=== PATIENT | male | born 1960 | race Caucasian/White ===

== ENCOUNTER 2016-07-30 18:25 | Emergency (ER) | payer SELFPAY ==
[~2016-07-30] VITALS: Ht 182.9 cm; Wt 95.5 kg
[~2016-07-30 18:25] MED LIST: ASPIRIN 32325 MG/TAB PO; LIPITOR 80MG80 MG PO; LOPRESSOR 225 MG/TAB PO; NITROQUICK0.4 MG SL; NO HOME MEDICATIONS; PLAVIX 75MG TAB75 MG PO; ZESTRIL2.5 MG PO; [UNRECOGNIZED DRUG - OTHER]; [UNRECOGNIZED DRUG - OTHER]; [UNRECOGNIZED DRUG - OTHER]; [UNRECOGNIZED DRUG - OTHER]; [UNRECOGNIZED DRUG - OTHER]
[2016-07-30 18:29] VITALS: TEMP 97.7
[2016-07-30 18:46] LABS: ADD PATHOLOGY DIFF REVIEW NO
[2016-07-30 18:54] LABS: HEMATOCRIT 44.7 % (42.0-52.0); HEMOGLOBIN 15.3 g/dl (13.5-18.0); MEAN CELL VOLUME 88 fl (80.0-100.0); MEAN CORPUSCULAR HEMOGLOBIN 30 pg (27.0-31.0); MEAN CORPUSCULAR HGB CONC 34 g/dl (33.0-37.0); MEAN PLATELET VOLUME 9.4 fl (7.4-10.4); PLATELET COUNT 225 K/mm3 (130-400); RED BLOOD COUNT 5.09 M/mm3 (4.20-5.60)
[2016-07-30 19:06] LABS: ADJUSTED CALCIUM 9.1 mg/dL (8.4-10.2); ALBUMIN 4.3 gm/dL (3.5-5.0); BILIRUBIN,TOTAL 0.8 mg/dL (0.0-1.0); CALCIUM 9.3 mg/dL (8.4-10.2); CREATININE, serum 1.15 mg/dL (0.66-1.25); POTASSIUM 4.4 mmol/L (3.4-5.0); TOTAL PROTEIN 7.7 gm/dL (6.4-8.2)
[2016-07-30 20:17] LABS: BAND 1 % (0-10); EOSINOPHIL 1 % (0-4); NEUTROPHILS 52 % (42.0-75.2); TOTAL CELLS COUNTED 100
[2016-07-30 20:19] LABS: PLATELET ESTIMATE NORMAL (NORMAL)
[2016-07-30] MEDS ORDERED: NORCO 325 MG-51 TAB PO (20:24)
[2016-07-30 21:16] VITALS: BP 120/84; PULSE 81
== END 2016-07-30 21:50 | disposition home or self-care (01) ==
LOC: COL.ER 18:25
PROVIDERS: Family Medicine
DX: S82.831A Other fracture of upper and lower end of right fibula, initial encounter for closed fracture (principal); S82.491A Other fracture of shaft of right fibula, initial encounter for closed fracture; S82.291A Other fracture of shaft of right tibia, initial encounter for closed fracture; W11.XXXA Fall on and from ladder, initial encounter; I25.2 Old myocardial infarction
CPT/HCPCS: J1170; J2405

== ENCOUNTER 2016-08-04 11:30 | Observation (INO) | payer SELFPAY ==
[2016-08-04] VITALS (8 sets, daily range): BP systolic 110–122; BP diastolic 70–83; PULSE 80–105; TEMP 97.9–98
[~2016-08-04 11:30] MED LIST changes: +NORCO 325 MG-51 TAB PO
[2016-08-04] MEDS ORDERED: VITAMIN D31000 IU PO (12:21)
[2016-08-04] MEDS ORDERED: MOTRIN 200200 MG/TAB PO (12:22)
[2016-08-04] MEDS ORDERED: OMEGA-3 1000 MG1 CAP PO (12:23)
[2016-08-04] MEDS ORDERED: ASPIRIN 81M81 MG/TA2 PO (12:26)
[2016-08-04] MEDS ORDERED: MAGNESIUM CITR100 MG PO (17:28)
[2016-08-04] MEDS ORDERED: [UNRECOGNIZED DRUG - OTHER] (17:29)
[2016-08-05 01:51] VITALS: BP 114/60; PULSE 96; TEMP 98.2
[2016-08-05 05:12] VITALS: BP 105/67; PULSE 98; TEMP 98.5
[2016-08-05] MEDS ORDERED: NORCO 325 MG-7.1 TAB PO (07:04)
[2016-08-05] MEDS ORDERED: IBU600 MG PO (07:06)
[2016-08-05 09:32] VITALS: BP 105/67; PULSE 83; TEMP 98.2
== END 2016-08-05 11:23 | disposition home or self-care (01) ==
LOC: SDCO 11:30 → SURG 15:41 → SDCO 17:05 → SURG 17:05
DX: S82.251A Displaced comminuted fracture of shaft of right tibia, initial encounter for closed fracture (principal); S82.451A Displaced comminuted fracture of shaft of right fibula, initial encounter for closed fracture; W11.XXXA Fall on and from ladder, initial encounter
CPT/HCPCS: OP; C1713; G8978-GP; G8979-GP; J0690; J1100; J1170; J1885; J2270; J2370; J2405; J2550; J2704; J2765; J3010; J7120; L2114

== ENCOUNTER 2018-08-25 13:20 | Inpatient (IN) | payer SELFPAY ==
[~2018-08-25] VITALS: Ht 182.9 cm; Wt 102.1 kg
[2018-08-25] VITALS (307 sets, daily range): BP systolic 94–137; BP diastolic 63–96; PULSE 62–75; TEMP 98–98.3; O2SAT 92–99
[~2018-08-25 13:20] MED LIST changes: +ASPIRIN 81M81 MG/TA2 PO; +IBU600 MG PO; +MAGNESIUM CITR100 MG PO; +MOTRIN 200200 MG/TAB PO; +NORCO 325 MG-7.1 TAB PO; +OMEGA-3 1000 MG1 CAP PO; +VITAMIN D31000 IU PO; +[UNRECOGNIZED DRUG - OTHER]
[2018-08-25 13:41] LABS: BASO # 0.1 (0.0-0.2); BASO % 0.8 % (0.0-2.0); EOS # 0.1 (0.0-0.7); EOS % 0.9 % (0-4.0); GRAN % 60.3 % (42.2-75.2); HEMATOCRIT 46.4 % (42.0-52.0); HEMOGLOBIN 15.8 g/dl (13.5-18.0); LYMPH % 29.5 % (20.0-51.0); MEAN CELL VOLUME 86 fl (80.0-100.0); MEAN CORPUSCULAR HEMOGLOBIN 29 pg (27.0-31.0); MEAN CORPUSCULAR HGB CONC 34 g/dl (33.0-37.0); MEAN PLATELET VOLUME 9.5 fl (7.4-10.4); MONO # 0.6 (0.1-0.6); MONO % 8.3 % (1.7-9.3); PLATELET COUNT 190 K/mm3 (130-400); PROTHROMBIN TIME 11.8 SECONDS (9.7-12.8); RED BLOOD COUNT 5.37 M/mm3 (4.20-5.60); REDCELL DISTRIBUTION WIDTH-CV 13.2 % (11.5-14.5)
[2018-08-25 13:43] LABS: PARTIAL THROMBOPLASTIN TIME 35.8 SECONDS (26.0-37.0)
[2018-08-25 13:45] LABS: ALBUMIN 4.2 gm/dL (3.5-5.0); BILIRUBIN,TOTAL 0.7 mg/dL (0.0-1.0); CALCIUM 9.5 mg/dL (8.4-10.2); CREATININE, serum 1.15 mg/dL (0.66-1.25); MAGNESIUM 1.9 mg/dL (1.6-2.3); PHOSPHOROUS 3.3 mg/dL (2.5-4.5); POTASSIUM 4.2 mmol/L (3.4-5.0); TOTAL PROTEIN 7.9 gm/dL (6.4-8.2)
[2018-08-25 13:59] LABS: TROPONIN-I 0.516 ng/mL (0.000-0.035)
[2018-08-25] MEDS ORDERED: ASPIRIN 81M81 MG/TA2 PO (16:10)
[2018-08-25] MEDS ORDERED: VITAMIN D31000 I1 PO (16:10)
[2018-08-25] MEDS ORDERED: OMEGA-3 1000 MG1 CAP PO (16:11)
[2018-08-25] MEDS ORDERED: COLLAGEN (16:11)
[2018-08-25] MEDS ORDERED: NATURAL MAGNES200 MG PO (16:11)
[2018-08-25] MEDS ORDERED: [UNRECOGNIZED DRUG - OTHER] (16:12)
--- NOTE | 2018-08-25 16:30 | NUR ---
Patient arrives to ICU room 3 at this time. He ambulates from the wheelchair to the bed with no issue. He requests a urinal to use the void in. Urinal given to patient and when patient is finished, he is attached to monitors. VS WNL. Will review orders. Call light within reach.
--- NOTE | 2018-08-25 18:55 | NUR ---
Plan of care reviewed with Patient after phone call with Dr. Turcios to clarify orders and inform him of elevating troponin. Patient and his family's questions are answered. Will continue to monitor.
--- NOTE | 2018-08-25 19:00 | NUR ---
Patient expresses desire to be made DNR status. We discuss this extensively and I also explain that typically the DNR code status is changed to Full code status during surgical procedures, then changed back to DNR status after procedures are completed. Patient verbalized understanding and and daughter are at the bedside during this conversation. I will call JOSH Patton to discuss patient's request and obtain order
--- NOTE | 2018-08-25 19:15 | NUR ---
Bedside report given to BANDAR Villalobos. Plan of care. Questions answered. Heparin gtt reviewed. Care turned over at this time.
--- NOTE | 2018-08-25 23:50 | NUR ---
HEPXA STOPPED PER PROTOCOL FOR LAB VALUE 1.17
[2018-08-26] VITALS (368 sets, daily range): BP systolic 96–115; BP diastolic 50–86; PULSE 55–94; TEMP 97.8; O2SAT 52–100
[2018-08-26 02:16] LABS: PARTIAL THROMBOPLASTIN TIME 86.8 SECONDS (26.0-37.0)
[2018-08-26 02:25] LABS: ALBUMIN 3.7 gm/dL (3.5-5.0); BILIRUBIN,TOTAL 0.8 mg/dL (0.0-1.0); CALCIUM 8.9 mg/dL (8.4-10.2); CREATININE, serum 1.11 (0.66-1.25); TOTAL PROTEIN 7.1 gm/dL (6.4-8.2)
[2018-08-26 02:47] LABS: CHOLESTEROL RISK RATIO 5.1
[2018-08-26 05:09] LABS: HEMATOCRIT 45.1 % (42.0-52.0); HEMOGLOBIN 15.4 g/dl (13.5-18.0); MEAN CELL VOLUME 88 fl (80.0-100.0); MEAN CORPUSCULAR HEMOGLOBIN 30 pg (27.0-31.0); MEAN CORPUSCULAR HGB CONC 34 g/dl (33.0-37.0); MEAN PLATELET VOLUME 10.1 fl (7.4-10.4); PLATELET COUNT 184 K/mm3 (130-400); RED BLOOD COUNT 5.12 M/mm3 (4.20-5.60); REDCELL DISTRIBUTION WIDTH-CV 13.2 % (11.5-14.5)
--- NOTE | 2018-08-26 09:25 | NUR ---
ALL SEDATION MEDICATIONS WILL BE GIVEN DURING PROCEDURE WITH VERBAL ORDER FROM MD MAGAÑA. SEE MERGE FOR REPRODUCTIVE HEALTHCARE ASSISTANT TIMES. SEE MERGE FOR RASS AND MODERATE SEDATION ASSESSMENTS DURING AND POST PROCEDURE
--- NOTE | 2018-08-26 10:15 | NUR ---
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 Report received from BANDAR Muñiz. Patient VS WNL, right radial site clean and dry with TR band in place. He is drowsy and arouses to his name. Will continue to monitor closely.
--- NOTE | 2018-08-26 12:55 | NUR ---
Report given to [facility] day camp unit leader. TR band explained. Syringe for TR band sent with patient. Patient leaves with [facility] at this time.
--- NOTE | 2018-08-26 13:13 | NUR ---
Report called to BANDAR Dangelo on 7 [address] floor at [facility]. Questions answered. Plan of care discussed.
== END 2018-08-26 12:55 | disposition short-term general hospital (02) | DRG 282 ==
LOC: COL.ER 13:20 → ICU 15:26
PROVIDERS: Emergency Medicine; Physician Assistant; ADMIT Internal Medicine
PROC: B2111ZZ Fluoroscopy of Multiple Coronary Arteries using Low Osmolar Contrast (ICD-10-PCS; principal; 2018-08-26)
DX: I21.4 Non-ST elevation (NSTEMI) myocardial infarction (principal); I25.10 Atherosclerotic heart disease of native coronary artery without angina pectoris; I10 Essential (primary) hypertension; Z95.5 Presence of coronary angioplasty implant and graft
CPT/HCPCS: 99223-AI; 99239; C1769; J1200; J1644; J2250; J2930; J3010; J7030; Q9967